=== PATIENT | female | born 1980 | race Caucasian/White ===

== ENCOUNTER 2019-06-06 03:05 | Inpatient (IN) | payer OTHER ==
[2019-06-06] MEDS: LACTATED RINGERS 1,000 ML IV SCH ×2 (03:40→04:49)
[2019-06-06] MEDS ORDERED: TERBUTALINE 1 MG/ML VIAL SQ PRN (03:53)
[2019-06-06] MEDS ORDERED: LIDOCAINE 0.5% (PF) 5 MG/ML (50 ML SDV) SQ PRN (03:53)
[2019-06-06] MEDS ORDERED: METHYLERGONOVINE 0.2 MG/ML 1 ML AMP IM PRN (03:53)
[2019-06-06] MEDS ORDERED: CARBOPROST TROMETHAMINE 250 MCG/ML 1 ML AMP IM PRN (03:53)
[2019-06-06] MEDS ORDERED: OXYTOCIN 10 UNIT/ML 1 ML VIAL IM PRN (03:53)
[2019-06-06 04:04] LABS: Basophils # (A) 0.1 k/uL (0-0.2); Basophils % (A) 1 %; Eosinophils # (A) 0.1 k/uL (0-0.7); Eosinophils % (A) 1 %; HCT 40.1 % (34.0-46.0); HGB 13.4 gm/dL (11.4-16.0); Lymphocytes # (A) 1.6 k/uL (1.0-4.8); Lymphocytes % (A) 18 %; MCH 30.4 pg (25.0-35.0); MCHC 33.3 g/dL (31.0-37.0); MCV 91.2 fL (80.0-100.0); Monocytes # (A) 0.5 k/uL (0-1.0); Monocytes % (A) 6 %; Neutrophils # (A) 6.5 k/uL (1.3-7.7); Neutrophils % (A) 73 %; Platelet Count 115 k/uL (150-450); RDW 14.2 % (11.5-15.5); WBC 8.9 k/uL (3.8-10.6)
[2019-06-06] MEDS ORDERED: fentaNYL (PF) 50 MCG/ML 5 ML AMP ONE (04:18)
[2019-06-06] MEDS ORDERED: ROPIVACAINE 5MG/ML 20ML VIAL ONE (04:18)
[2019-06-06] MEDS ORDERED: SODIUM CHLORIDE 0.9% 100 ML BAG ONE (04:18)
[2019-06-06] MEDS ORDERED: ROPIVACAINE 100 MG, fentaNYL (PF) 200 MCG in SODIUM CHLORIDE 0.9% 76 ML EPIDURAL ONE (05:08)
[2019-06-06] MEDS ORDERED: OXYTOCIN 30 UNITS/500 ML NS 30 UNIT in SALINE 1 500ML.BAG IV SCH (09:00)
[2019-06-06] MEDS ORDERED: diphenhydrAMINE 50 MG/ML 1 ML VIAL IVP PRN ×2 (12:28)
[2019-06-06] MEDS ORDERED: SIMETHICONE 80 MG CHEWABLE PO PRN (12:28)
[2019-06-06] MEDS ORDERED: ACETAMINOPHEN TAB 325 MG TAB PO PRN (12:28)
[2019-06-06] MEDS ORDERED: HYDROCORTISONE 2.5% RECTAL CREAM 30 GM TUBE RECTAL PRN (12:28)
[2019-06-06] MEDS ORDERED: BENZOCAINE/MENTHOL SPRAY 1 GM/SPRAY AEROSOL TOPICAL PRN (12:28)
[2019-06-06] MEDS ORDERED: WITCH HAZEL 1 EACH MED..PAD TOPICAL PRN (12:28)
[2019-06-06] MEDS ORDERED: diphenhydrAMINE 25 MG CAP PO PRN (12:28)
[2019-06-06] MEDS ORDERED: LANOLIN CREAM 5 GM TUBE TOPICAL PRN (12:28)
[2019-06-06] MEDS ORDERED: ZOLPIDEM 5 MG TAB PO PRN (12:28)
[2019-06-06] MEDS ORDERED: diphenhydrAMINE 50 MG CAP PO PRN (12:28)
[2019-06-06] MEDS ORDERED: OXYTOCIN 20 UNITS/1000 ML NS 1,000 ML IV SCH (12:30)
--- NOTE | 2019-06-06 13:03 | P.HPOB ---
History of Present Illness H&P Date: 06/06/19 Chief Complaint: Normal labor 39 year old presents at 38 weeks 2 days with SROM at 1:30 AM. She presented to the hospital 3cm dilated, 70% effaced, -3 station. She is c ontracting irregularly. heart tones 130 with moderate variability and reactive. Review of Systems All systems: negative Constitutional: Denies chills, Denies fever Eyes: denies blurred vision, denies pain Ears, nose, mouth and throat: Denies headache, Denies sore throat Cardiovascular: Denies chest pain, Denies shortness of breath Respiratory: Denies cough Gastrointestinal: Denies abdominal pain, Denies diarrhea, Denies nausea, Denies vomiting Genitourinary: Denies dysuria, Denies hematuria Musculoskeletal: Denies myalgias Integumentary: Denies pruritus, Denies rash Neurological: Denies numbness, Denies weakness Psychiatric: Denies anxiety, Denies depression Endocrine: Denies fatigue, Denies weight change Past Medical History Past Medical History: No Reported History History of Any Multi-Drug Resistant Organisms: None Reported Past Surgical History: Tonsillectomy Additional Past Surgical History / Comment(s): bilateral club feet repair, rhinoplasty Past Anesthesia/Blood Transfusion Reactions: No Reported Reaction Past Psychological History: No Psychological Hx Reported Smoking Status: Never smoker Past Alcohol Use History: None Reported Past Drug Use History: None Reported - Past Family History Mother Family Medical History: Asthma, Hypertension Medications and Allergies Home Medications Medication Instructions Recorded Confirmed Type Pnv No.95/Ferrous Fum/Folic AC 1 each PO DAILY 06/06/19 06/06/19 History [ Multivitamin Tablet] Allergies Allergy/AdvReac Type Severity Reaction Status Date / Time sulfamethoxazole Allergy Swelling Verified 06/06/19 03:53 [From Bactrim] trimethoprim [From Bactrim] Allergy Swelling Verified 06/06/19 03:53 Exam Osteopathic Statement: *. No significant issues noted on an osteopathic structural exam other than those noted in the History and Physical/Consult. Vital Signs Temp Pulse Resp BP Pulse Ox 06/06/19 12:33 81 16 119/56 06/06/19 12:18 82 16 117/75 06/06/19 12:03 77 16 109/70 06/06/19 11:48 82 16 110/59 06/06/19 11:33 98.0 F 87 16 133/71 06/06/19 03:58 97.8 F 80 18 133/69 98 Intake and Output 06/05/19 06/06/19 06/06/19 22:59 06:59 14:59 Output Total 100 Balance -100 Output: Estimated Blood Loss 100 Other: # Voids 1 Weight 88.451 kg Heart: Regular rate and rhythm Lungs: Clear to auscultation bilaterally Abdomen: Soft, nontender Extremities: Negative Homans sign Results Result Diagrams: 06/06/19 03:50 Abnormal Lab Results - Last 24 Hours (Table) 06/06/19 Range/Units 03:50 Plt Count 115 L (150-450) k/uL Assessment and Plan (1) Spontaneous rupture of membranes Current Visit: Yes Status: Acute Code(s): [id number] - SNOMED Code(s): 671025420 (2) Normal labor Current Visit: Yes Status: Acute Code(s): O80 - ENCOUNTER FOR FULL-TERM UNCOMPLICATED DELIVERY; Z37.9 - OUTCOME OF DELIVERY, UNSPECIFIED SNOMED Code(s): 50315959 Plan: 1. Admit to family place by Dr. Miranda 2. Expectant management 3. Anticipate normal vaginal delivery
--- NOTE | 2019-06-06 13:05 | P.PROBDLV ---
Vaginal Delivery Note - . Vaginal Delivery Note: 39-year-old presented at 38 weeks and 2 days with spontaneous rupture of membranes. Her cervix was 3cm dilated, 70% effaced, and -3 station. She is mirna irregularly. heart tones 130 with moderate variability and reactive. When she was 5 cm she did get an epidural and was comfortable. Her cervix was still 5 cm 3 hours later so Pitocin augmentation was started. Her cervix was completely dilated 11:00 AM. She pushed, delivered a viable male in ed over intact perineum under epidural anesthesia at 11:30 AM. Head delivered OA, anterior shoulder delivered gentle downward guidance followed by posterior shoulder and rest of body. Nose and mouth bulb suctioned, cord cut and the cut, infant placed mother's abdomen. Apgars 8, 9, weight 7 lbs. 11 oz. Placenta delivered spontaneously, intact with three-vessel cord at 11:33 AM. Vagina, cervix, perineum inspected. No lacerations noted. Estimated blood loss 100 mL.
[2019-06-06] MEDS: SENNOSIDES-DOCUSATE SODIUM 1 EACH TAB PO SCH (21:12)
[2019-06-06] MEDS: IBUPROFEN 600 MG TAB PO PRN (21:13)
[2019-06-07 06:05] VITALS: RESP 16; TEMP 98.2
[2019-06-07] MEDS: SENNOSIDES-DOCUSATE SODIUM 1 EACH TAB PO SCH (08:11)
[2019-06-07] MEDS: IBUPROFEN 600 MG TAB PO PRN ×2 (08:12→14:16)
--- NOTE | 2019-06-07 08:42 | P.DS ---
Providers Date of admission: 06/06/19 03:30 Expected date of discharge: 06/07/19 Attending physician: Apple Walker Primary care physician: Stated None - Discharge Diagnosis(es) (1) Spontaneous rupture of membranes Current Visit: Yes Status: Resolved (2) Normal labor Current Visit: Yes Status: Resolved (3) Normal vaginal delivery Current Visit: Yes Status: Acute Hospital Course: Patient presented with some effaced rupture membranes. She underwent a normal vaginal delivery with Pitocin augmentation. course was uncomplicated. She'll be discharged home day #1 in stable condition to follow-up with me in 6 weeks. Plan - Discharge Summary New Discharge Prescriptions: New Ibuprofen [Motrin] 600 mg PO Q6HR PRN #30 tab PRN Reason: Mild Pain Or Fever >= 100.5 No Action Pnv No.95/Ferrous Fum/Folic AC [ Multivitamin Tablet] 1 each PO DAILY Discharge Medication List Pnv No.95/Ferrous Fum/Folic AC [ Multivitamin Tablet] 1 each PO DAILY 06/06/19 [History] Ibuprofen [Motrin] 600 mg PO Q6HR PRN #30 tab 06/07/19 [Rx] Follow up Appointment(s)/Referral(s): Apple Walker DO [Doctor of Osteopathic Medicine] - 6 Weeks Discharge Disposition: HOME SELF-CARE
[2019-06-07 09:35] VITALS: BP 101/63; PULSE 85
== END 2019-06-07 14:35 | disposition home or self-care (01) | DRG 807 ==
LOC: FBPOP 03:05 → 4FBP 03:30
PROVIDERS: ADMIT Obstetrics & Gynecology; ATTEND Obstetrics & Gynecology
PROC: 10E0XZZ Delivery of Products of Conception, External Approach (ICD-10-PCS; principal; 2019-06-06)
PROC: 00HU33Z Insertion of Infusion Device into Spinal Canal, Percutaneous Approach (ICD-10-PCS; principal; 2019-06-06)
PROC: 3E0R3BZ Introduction of Anesthetic Agent into Spinal Canal, Percutaneous Approach (ICD-10-PCS; principal; 2019-06-06)
DX: O80 Encounter for full-term uncomplicated delivery (principal); Z37.0 Single live birth; Z3A.38 38 weeks gestation of pregnancy; Z82.49 Family history of ischemic heart disease and other diseases of the circulatory system; Z82.5 Family history of asthma and other chronic lower respiratory diseases; Z98.890 Other specified postprocedural states; Z88.2 Allergy status to sulfonamides
CPT/HCPCS: 85025; 86850; 86870; 86880; 86900; 86901; 86902